=== PATIENT | female | born 1960 ===

== ENCOUNTER 2016-05-28 16:28 | Emergency (ER) | payer MEDICAID ==
[2016-05-28 17:07] VITALS: RESP 18
--- NOTE | 2016-05-28 17:14 | C.PDOC ---
History Of Present Illness 55 y/o [place] Patient is homeless and states she was sitting at the train station letting the trains go by. She states she was sitting in the sun letting her things dry off because it has been raining a lot lately. She states someone called EMS for her. She denies any complaints. She denies SI/HI/hallucinations. Time Seen by Provider: 05/28/16 16:57 Chief Complaint (Nursing): Psychiatric Evaluation Past Medical History Vital Signs: Last Vital Signs Temp 98.6 F 05/28/16 17:06 Pulse 100 H 05/28/16 17:06 Resp 18 05/28/16 17:06 BP 145/94 H 05/28/16 17:06 Pulse Ox 97 05/28/16 17:14 Surgical History: Denies: Tonsillectomy Family History: States: No Known Family Hx - Social History Hx Alcohol Use: No Hx Substance Use: No - Immunization History Hx Tetanus Toxoid Vaccination: No Hx Influenza Vaccination: No Hx Pneumococcal Vaccination: No Review Of Systems Except As Marked, All Systems Reviewed And Found Negative. Constitutional: Negative for: Fever Cardiovascular: Negative for: Chest Pain Physical Exam - Physical Exam Additional Physical Exam Comments: Constitutional: No acute distress. Head: Normocephalic. Atraumatic. Eyes: PERRL. EOMI ENT: Moist mucous membranes. Neck: Supple. Cardiovascular: Regular rate. Radial pulses 2+ bilaterally. Chest: No tenderness. Respiratory: Clear to auscultation bilaterally. GI: Soft. Nontender. Nondistended. Back: No CVA tenderness. No midline tenderness. Musculoskeletal: No tenderness or swelling of extremities. Skin: No rash. Neurologic: Alert, no focal deficit. ED Course And Treatment O2 Sat by Pulse Oximetry: 97 Medical Decision Making Medical Decision Making: Patient is not a risk to herself or others at this time and there is no indication for further emergency department evaluation. Will discharge home, informed that she can return at any time for any SI/HI/hallucinations. Disposition - Disposition Disposition: HOME/ ROUTINE Disposition Time: 17:22 Condition: STABLE - Clinical Impression Clinical Impression: General medical exam
--- NOTE | 2016-05-28 17:21 | C.PDOC ---
Time Seen by Provider: 05/28/16 16:57 Chief Complaint (Nursing): Psychiatric Evaluation
[2016-05-28 18:18] VITALS: BP 137/80; PULSE 77; TEMP 98; O2SAT 98
== END 2016-05-28 18:17 | disposition home or self-care (01) ==
LOC: EDBD 16:28 → C.ER 16:28
DX: Z00.00 Encounter for general adult medical examination without abnormal findings (principal); Z59.0 Homelessness